=== PATIENT | male | born 1980 | race Caucasian/White ===

== ENCOUNTER 2023-02-22 07:10 | Emergency (ER) | payer OTHER ==
[2023-02-22] MEDS ORDERED: Lidocaine 4% 1 each Patch TOP STA (07:53)
[2023-02-22] MEDS ORDERED: Methocarbamol 750 MG TAB PO STA (07:53)
[2023-02-22] MEDS ORDERED: Ketorolac 30 MG/ML SDV IM ONE (07:53)
== END 2023-02-22 10:07 | disposition home or self-care (01) ==
LOC: MW.ED 07:10
DX: M54.50 Low back pain, unspecified (principal); Z98.890 Other specified postprocedural states; F17.210 Nicotine dependence, cigarettes, uncomplicated; Z88.0 Allergy status to penicillin; W18.40XA Slipping, tripping and stumbling without falling, unspecified, initial encounter
CPT/HCPCS: 72131; 96374; 99283; A9270; J1885

== ENCOUNTER 2023-10-16 15:08 | Emergency (ER) | payer OTHER ==
[2023-10-16] MEDS: Diphtheria,Pertussis(Acell),Tetanus Vaccine 0.5 ML Syringe IM ONE (16:12)
[2023-10-16] MEDS: Cephalexin 500 MG Cap PO ONE (16:38)
== END 2023-10-16 16:54 | disposition home or self-care (01) ==
LOC: MW.ED 15:08
DX: S62.635B Displaced fracture of distal phalanx of left ring finger, initial encounter for open fracture (principal); Z88.0 Allergy status to penicillin; Z23 Encounter for immunization; Z75.8 Other problems related to medical facilities and other health care; W23.0XXA Caught, crushed, jammed, or pinched between moving objects, initial encounter
CPT/HCPCS: 73140; 90471; 90715; 99283; A9270

== ENCOUNTER 2023-10-23 06:30 | Day surgery (SDC) | payer OTHER ==
[~2023-10-23 06:30] MED LIST: Acetaminophen 1,000 MG in Premix Bag 1 BAG IV SCH; ceFAZolin 2 GM in Sodium Chloride 0.9% 50 ML IV ONE
[2023-10-23] MEDS ORDERED: dexmedeTOMIDine HCl 200 MCG/2 ML SDV ONE (07:00)
[2023-10-23] MEDS ORDERED: propofoL 200 ML ONE (07:00)
[2023-10-23] MEDS ORDERED: Ropivacaine 0.5% 5 MG/ML 30 ML SDV ONE (07:00)
[2023-10-23] MEDS ORDERED: Rocuronium Bromide 50 MG/5 ML Syringe ONE ×2 (07:01→09:13)
[2023-10-23] MEDS: Lactated Ringers 1,000 ML IV SCH (07:01)
[2023-10-23] MEDS ORDERED: Water For Injection, Sterile 20 ML ONE (07:01)
[2023-10-23] MEDS ORDERED: Morphine 10 MG/ML SDV ONE (07:01)
[2023-10-23] MEDS ORDERED: Scopalamine 1mg/3day Transdermal Patch ONE (07:01)
[2023-10-23] MEDS ORDERED: Magnesium Sulfate (4.06 MEQ/ML) 5 GM/10 ML SDV ONE ×2 (07:01)
[2023-10-23] MEDS: Pregabalin 75 MG Cap PO SCH (07:06)
[2023-10-23] MEDS ORDERED: Bupivacaine 0.25% 30 ML SDV ONE (07:21)
[2023-10-23] MEDS ORDERED: Metoclopramide 10 MG/2 ML SDV IVPUSH PRN (07:24)
[2023-10-23] MEDS ORDERED: Naloxone 0.4 MG/ML SDV IVPUSH PRN (07:24)
[2023-10-23] MEDS ORDERED: Albuterol 0.083% 2.5 MG/3 ML Neb Soln NEB PRN (07:24)
[2023-10-23] MEDS ORDERED: HYDROmorphone 1 MG/ML Syringe IVPUSH PRN (07:24)
[2023-10-23] MEDS ORDERED: Ondansetron 4 MG/2 ML SDV IVPUSH PRN (07:24)
[2023-10-23] MEDS ORDERED: fentaNYL 50 MCG/ML SDV IVPUSH PRN (07:24)
[2023-10-23] MEDS ORDERED: droPERidol 5 MG/2 ML SDV IVPUSH PRN (07:24)
[2023-10-23] MEDS ORDERED: Morphine 2 MG/ML SYRINGE IVPUSH PRN (07:24)
[2023-10-23] MEDS ORDERED: ceFAZolin 2 GM Vial ONE (07:25)
[2023-10-23] MEDS ORDERED: Indocyanine Green 25 MG SDV ONE (07:26)
[2023-10-23] MEDS ORDERED: Ondansetron 4 MG/2 ML SDV ONE ×2 (07:26→07:42)
[2023-10-23] MEDS ORDERED: Lidocaine 2% 5 ML SDV ONE (07:37)
[2023-10-23] MEDS ORDERED: Dexamethasone 4 MG/ML 5 ML MDV ONE (07:40)
[2023-10-23] MEDS ORDERED: Ketorolac 30 MG/ML SDV ONE (07:42)
[2023-10-23] MEDS ORDERED: Sugammadex Sodium 200 MG/2 ML VIAL IV ONE ×2 (07:42→09:31)
[2023-10-23] MEDS ORDERED: fentaNYL 100 MCG/2 ML SDV ONE (08:19)
[2023-10-23] MEDS ORDERED: Esmolol 100 MG/10 ML SDV ONE (08:33)
[2023-10-23] MEDS ORDERED: HYDROmorphone 2 MG/ML Syringe ONE (08:45)
[2023-10-23] MEDS ORDERED: hydrALAZINE 20 MG/ML SDV ONE (08:59)
== END 2023-10-23 11:20 | disposition home or self-care (01) ==
LOC: MW.SDS 06:30
PROVIDERS: ATTEND Surgery
DX: K80.10 Calculus of gallbladder with chronic cholecystitis without obstruction (principal); K82.8 Other specified diseases of gallbladder; F17.290 Nicotine dependence, other tobacco product, uncomplicated; Z80.0 Family history of malignant neoplasm of digestive organs
CPT/HCPCS: 47562; A9270; J0131; J0360; J0665; J0690; J1100; J1170; J1885; J2270; J2405; J2704; J2795; J3010; J3475; J3490; J7120